=== PATIENT | female | born 1985 | race Caucasian/White ===

== ENCOUNTER 2019-01-17 15:15 | Inpatient (IN) | payer OTHER ==
[~2019-01-17] VITALS: Ht 175.3 cm; Wt 86.2 kg
[2019-01-29] MEDS ORDERED: PRENATAL CAPLE1 EAC1 PO (08:11)
== END 2019-01-31 10:45 | DRG 768 ==
LOC: OB/GYN 01-29 06:03 → LDR 01-29 06:03 → OB/GYN 01-29 16:21
PROVIDERS: ADMIT Obstetrics & Gynecology Maternal & Fetal Medicine
PROC: 10E0XZZ Delivery of Products of Conception, External Approach (ICD-10-PCS; principal; 2019-01-29)
PROC: 0DQR0ZZ Repair Anal Sphincter, Open Approach (ICD-10-PCS; 2019-01-29)
PROC: 4A0HXFZ Measurement of Products of Conception, Cardiac Rhythm, External Approach (ICD-10-PCS; 2019-01-29)
PROC: 0W8NXZZ Division of Female Perineum, External Approach (ICD-10-PCS; 2019-01-29)
DX: O70.20 Third degree perineal laceration during delivery, unspecified (principal); Z37.0 Single live birth; Z3A.39 39 weeks gestation of pregnancy

== ENCOUNTER 2021-12-07 09:44 | Outpatient (CLI) | payer OTHER ==
[~2021-12-07 09:44] MED LIST: PRENATAL CAPLE1 EAC1 PO
== END 2021-12-07 09:55 | disposition home or self-care (01) ==
LOC: RX STUDY 09:44
PROVIDERS: ATTEND Obstetrics & Gynecology Maternal & Fetal Medicine
DX: N84.0 Polyp of corpus uteri (principal)

== ENCOUNTER 2021-12-23 06:20 | Day surgery (SDC) | payer OTHER | END 2021-12-23 12:20 | disposition home or self-care (01) | LOC: CIR.AMB 06:20 | PROVIDERS: ATTEND Obstetrics & Gynecology Maternal & Fetal Medicine | DX: N84.0 Polyp of corpus uteri (principal); Z88.6 Allergy status to analgesic agent; M41.86 Other forms of scoliosis, lumbar region ==

== ENCOUNTER 2024-04-18 05:52 | Day surgery (SDC) | payer OTHER ==
[2024-04-11 11:57] LABS: HEMATOCRIT 32.5 % (36.0-45.00); MEAN CELL VOLUME 84.5 fL (80.00-100.00); MEAN CORPUSCULAR HEMOGLOBIN 28.6 pg (27.00-32.0); MEAN CORPUSCULAR HGB CONC 33.8 g/dl (32.0-36.0); PLATELET COUNT 244 K/uL (150-450); RED BLOOD COUNT 3.84 M/uL (4.00-6.00); RED CELL DISTRIBUTION WIDTH 15.4 % (11.5-14.5)
[2024-04-11 12:22] LABS: INR 0.98; PARTIAL THROMBOPLASTIN TIME 28.1 SECONDS (22.0-34.0); PROTHROMBIN TIME 10.3 SECONDS (9.0-11.5)
[2024-04-11 12:23] LABS: ALBUMIN 3.3 gm/dL (3.4-5.0); BILIRUBIN TOTAL 0.33 mg/dL (0.3-1.2); CALCIUM 9.1 mg/dL (8.5-10.1); CREATININE SERUM 0.53 mg/dL (0.55-1.02); GFR 130.53; GLOBULINA 3.9 G/DL (2.4-3.5); POTASSIUM 3.77 mEq/L (3.5-5.1); TOTAL PROTEIN 7.2 gm/dL (6.4-8.2)
[~2024-04-18 05:52] MED LIST changes: +PROMETRIUM200 MG PO
[2024-04-18] MEDS ORDERED: POVIDONE-IODINE 118 ML BOTT TOP ONE (07:10)
== END 2024-04-18 12:40 | disposition home or self-care (01) ==
LOC: CIR.AMB 05:52
PROVIDERS: ATTEND Obstetrics & Gynecology Maternal & Fetal Medicine
DX: O34.31 Maternal care for cervical incompetence, first trimester (principal); Z88.6 Allergy status to analgesic agent

== ENCOUNTER 2024-10-03 12:15 | Inpatient (IN) | payer OTHER ==
[~2024-10-03] VITALS: Ht 175.3 cm; Wt 87.1 kg
[2024-10-05] VITALS (9 sets, daily range): BP systolic 124–135; BP diastolic 61–82
[2024-10-05] MEDS ORDERED: OXYTOCIN 500 ML IV SCH (06:15)
[2024-10-05] MEDS ORDERED: RINGERS SOLUTION,LACTATED 1,000 ML IV SCH (06:15)
[2024-10-05 07:05] LABS: HEMOGLOBIN 12.1 g/dL (12.0-15.00); MEAN CELL VOLUME 93.3 fL (80.00-100.00); MEAN CORPUSCULAR HEMOGLOBIN 32.4 pg (27.00-32.0); MEAN CORPUSCULAR HGB CONC 34.7 g/dl (32.0-36.0); PLATELET COUNT 202 K/uL (150-450); RED BLOOD COUNT 3.75 M/uL (4.00-6.00); RED CELL DISTRIBUTION WIDTH 15.5 % (11.5-14.5)
[2024-10-05 07:31] LABS: INR < 0.93; PARTIAL THROMBOPLASTIN TIME 26.8 SECONDS (22.0-34.0); PROTHROMBIN TIME 10.2 SECONDS (9.0-11.5)
[2024-10-05 07:57] LABS: ALBUMIN 2.9 gm/dL (3.4-5.0); BILIRUBIN TOTAL 0.46 mg/dL (0.3-1.2); CALCIUM 9.2 mg/dL (8.5-10.1); CREATININE SERUM 0.42 mg/dL (0.55-1.02); GFR 169.77; GLOBULINA 3.6 G/DL (2.4-3.5); POTASSIUM 3.6 mEq/L (3.5-5.1); TOTAL PROTEIN 6.5 gm/dL (6.4-8.2)
[2024-10-05] MEDS ORDERED: MORPHINE SULFATE 4 MG/ML CARTRIDGE IV STA (11:23)
[2024-10-05] MEDS ORDERED: MORPHINE SULFATE 4 MG/ML VIAL IV STA (13:22)
[2024-10-05] MEDS ORDERED: CHLORHEXIDINE GLUCONATE 120 ML BOTTLE TOP ONE (13:55)
[2024-10-05] MEDS ORDERED: ERYTHROMYCIN BASE OPHT 1GM EACH TUBE OP ONE ×2 (13:55→15:00)
[2024-10-05] MEDS ORDERED: LIDOCAINE HCL 1% 10ML VIAL ONE (13:55)
[2024-10-05] MEDS ORDERED: OXYTOCIN 20 UNITS/1000ML RL PIGGYBAG IV ONE (13:55)
[2024-10-05] MEDS ORDERED: CHLORHEXIDINE GLUCONATE 120 ML BOTTLE TOP SCH (14:30)
[2024-10-05] MEDS ORDERED: OxyCODONE HCL/APAP UD (PERCOCET) PO PRN ×2 (14:30→16:23)
[2024-10-05] MEDS ORDERED: OXYTOCIN 1,000 ML IV SCH (14:30)
[2024-10-05] MEDS ORDERED: LIDOCAINE HCL 1% 20 ML VIAL IJ ONE (15:00)
[2024-10-05] MEDS ORDERED: DOCUSATE SODIUM 100MG CAP PO SCH (17:00)
[2024-10-06 01:33] VITALS: BP 108/65
[2024-10-06 08:51] VITALS: BP 97/65
[2024-10-06 16:48] VITALS: BP 128/78
[2024-10-06 23:59] VITALS: BP 107/63
[2024-10-07 08:45] VITALS: BP 120/77
== END 2024-10-07 13:19 | disposition home or self-care (01) | DRG 807 ==
LOC: LDR 10-05 06:12 → OB/GYN 10-05 14:36 → LDR 10-21 12:15
PROVIDERS: ADMIT Obstetrics & Gynecology Maternal & Fetal Medicine; ATTEND Obstetrics & Gynecology Maternal & Fetal Medicine
PROC: 10E0XZZ Delivery of Products of Conception, External Approach (ICD-10-PCS; principal; 2024-10-05)
PROC: 0KQM0ZZ Repair Perineum Muscle, Open Approach (ICD-10-PCS; 2024-10-05)
PROC: 0W8NXZZ Division of Female Perineum, External Approach (ICD-10-PCS; 2024-10-05)
PROC: 3E033VJ Introduction of Other Hormone into Peripheral Vein, Percutaneous Approach (ICD-10-PCS; 2024-10-05)
PROC: 4A1HXCZ Monitoring of Products of Conception, Cardiac Rate, External Approach (ICD-10-PCS; 2024-10-05)
DX: O70.1 Second degree perineal laceration during delivery (principal); Z37.0 Single live birth; Z3A.37 37 weeks gestation of pregnancy; Z20.822 Contact with and (suspected) exposure to COVID-19